=== PATIENT | female | born 1955 | race American Indian/Alaskan Native ===

== ENCOUNTER 2016-08-08 08:17 | Outpatient (CLI) | payer OTHER ==
--- NOTE | 2016-08-08 14:21 | Mammography Report ---
BILATERAL DIGITAL SCREENING MAMMOGRAM with CAD: 08/08/16 08:17:00 CLINICAL: Routine screening. COMPARISON:08/08/15 FINDINGS: There are bilateral scattered fibroglandular densities. A left asymmetry on the CC view requires additional imaging.No architectural distortion or suspicious calcifications.The right breast is negative. IMPRESSION: Left asymmetry requiring further workup. BI-RADS CATEGORY: 0 -- Additional Imaging Evaluation Required RECOMMENDATION: Recall for left lateralmedial and spot compression CC views and left breast ultrasound if needed. ACR BI-RADS MAMMOGRAPHIC CODES: 0 = Needs additional imaging evaluation; 1 = Negative; 2 = Benign; 3 = Probably benign; 4 = Suspicious; 5 = Malignant; 6 = Known biopsy-proven malignancy COMMENT: 1. Dense breast tissue, i.e., adenosis, fibrocystic changes, etc., may obscure an underlying neoplasm. 2. Approximately 10% of cancers are not detected with mammography. 3. A negative mammography report should not delay biopsy if a clinically suspicious mass is present. COMMENT: Patient follow-up letters are generated via our [email or web address] application.
== END 2016-08-08 08:18 | disposition home or self-care (01) ==
LOC: SPVWC 08:17
PROVIDERS: ATTEND Family Medicine
DX: Z12.31 Encounter for screening mammogram for malignant neoplasm of breast (principal)
CPT/HCPCS: 77067; G0202

== ENCOUNTER 2017-09-02 14:00 | Outpatient (CLI) | payer OTHER ==
--- NOTE | 2017-09-02 15:58 | Mammography Report ---
BONE DEXA:09/02/17 14:00:00 CLINICAL: Postmenopausal. No comparison. TECHNIQUE: Two site bone DEXA performed on an Hologic scanner. FINDINGS: The average BMD of the lumbar spine L1-L4 is 0.959g/cm squared with a T-score of -1.7 and a Z-score of +0.1. The average BMD of the left hip is 0.931g/cm squared with a T-score of -0.6 and a Z-score of +0.3. IMPRESSION: WHO classification: Osteopenia with increased fracture risk based on both spine and left hip measurements. RECOMMENDATION: Clinical correlation and routine screening. DEFINITIONS: BMD = Bone Mineral Density T-score = BMD related to mean peak bone mass of young adult (mean expressed in Standard Deviation) Z-score = Age matched BMD expressed in SD World Health Organization (WHO) Diagnostic Criteria Normal T-score > -1 SD Osteopenia T-score between -1 and -2.4 SD Osteoporosis T-score -2.5 SD or below NOTE: BMD is not the only risk factor for fracture. One should also consider factors such as the patient's age, risk of falling, previous osteoporotic fracture, family history of osteoporotic fractures, current smoker, and low body weight. Z-scores are not calculated if >80 years of age.
--- NOTE | 2017-09-03 14:45 | Mammography Report ---
BILATERAL DIGITAL SCREENING MAMMOGRAM WITH CAD: 09/02/17 14:00:00 CLINICAL: Routine screening.Breast cancer survivor status post right partial mastectomy and radiation therapy in 2009. COMPARISON:08/08/16 FINDINGS: The breasts are mostly fatty with a few bilateral scattered fibroglandular densities. Stable right inner postsurgical scar. No mass, suspicious architectural distortion or suspicious calcifications. IMPRESSION: No mammographic evidence of malignancy. BI-RADS CATEGORY: 2 -- Benign RECOMMENDATION: Routine mammographic screening in one year. COMMENT: Patient follow-up letters are generated via our [email or web address] application.
== END 2017-09-02 14:01 | disposition home or self-care (01) ==
LOC: SPVWC 14:00
PROVIDERS: ATTEND Family Medicine
DX: Z12.31 Encounter for screening mammogram for malignant neoplasm of breast (principal); M85.88 Other specified disorders of bone density and structure, other site; Z78.0 Asymptomatic menopausal state; Z90.11 Acquired absence of right breast and nipple
CPT/HCPCS: 77067; 77080

== ENCOUNTER 2018-10-15 15:03 | Outpatient (CLI) | payer OTHER ==
--- NOTE | 2018-10-16 14:23 | Mammography Report ---
BILATERAL DIGITAL SCREENING MAMMOGRAM with CAD: 10/15/18 15:03:00 CLINICAL: Routine screening. COMPARISON: 09/02/17 FINDINGS: There are bilateral scattered areas of fibroglandular density.No mass, architectural distortion or suspicious calcifications. IMPRESSION: No mammographic evidence of malignancy. BI-RADS CATEGORY: 2 - - Benign RECOMMENDATION: Routine mammographic screening in one year. COMMENT: Patient follow-up letters are generated by our [employer] application.
== END 2018-10-15 15:04 | disposition home or self-care (01) ==
LOC: SPVWC 15:03
PROVIDERS: ATTEND Family Medicine
DX: Z12.31 Encounter for screening mammogram for malignant neoplasm of breast (principal)
CPT/HCPCS: 77067

== ENCOUNTER 2019-12-03 09:16 | Outpatient (CLI) | payer MEDICARE ==
--- NOTE | 2019-12-03 10:41 | Mammography Report ---
DIGITAL SCREENING MAMMOGRAM WITH CAD, 12/03/2019 INDICATION: Routine screening mammography. SCREENING MAMMOGRAM TECHNIQUE: Digital bilateral 2D mammography was obtained in the craniocaudal and mediolateral obliq ue projections. This examination was interpreted with the benefit of Computer-Aided Detection analysi s. COMPARISON: 08/08/2016 FINDINGS: Breast Density: There are scattered areas of fibroglandular density. There is no evidence of dominant mass, suspicious calcifications or architectural distortion in eithe r breast. Right surgical and radiation therapy changes are again seen. IMPRESSION: No evidence of malignancy Follow up recommendation: Routine yearly BI-RADS Category 2: Benign. A "normal" or negative report should not discourage follow up or biopsy of a clinically significant f inding. A written summary of these findings will be mailed to the patient. The patient will be entered into a mammography reporting system which will generate a reminder letter for the patient's next appointmen t at the appropriate interval. The [employer] recommends yearly mammograms starting at age 40 and continuing as l patricia as a woman is in good health. Breast MRI is recommended for women with an approximate 20-25% or greater lifetime risk of breast cancer, including women with a strong family history of breast or ova ezekiel cancer or who have been treated for Hodgkin's disease. Signer Name: Toribio Pro MD Signed: 12/03/2019 10:37 AM Workstation Name: [id number]
== END 2019-12-03 09:17 | disposition home or self-care (01) ==
LOC: SPVWC 09:16
PROVIDERS: ATTEND Family Medicine
DX: Z12.31 Encounter for screening mammogram for malignant neoplasm of breast (principal); N64.89 Other specified disorders of breast
CPT/HCPCS: 77067

== ENCOUNTER 2021-02-02 14:43 | Outpatient (CLI) | payer MEDICARE ==
--- NOTE | 2021-02-03 07:55 | Mammography Report ---
DEXA BONE DENSITY SCAN INDICATION / CLINICAL INFORMATION: N95.1 MENOPAUSAL AND FEMALE CLIMACTERIC STATE. 66 years Female COMPARISON: 09/02/17. LUMBAR SPINE, L1-L4: - Bone mineral density (BMD) = 0.983 g/cm2. - T-score = -1.5 - Z-score = 0.6 Change (%) since most recent prior (if available): 2.5% increase. RIGHT HIP, : -Not performed. LEFT HIP, NECK : - Bone mineral density (BMD) = 0.697 g/cm2. - T-score = -1.8 - Z-score = -0.5 Change (%) since most recent prior (if available): 2.2% increase. IMPRESSION: WHO Classification: Osteopenia. Fracture Risk: Increased. Note: 10-Year Fracture Risk (FRAX) not reported. This DEXA unit lacks FRAX functionality. BMD Reporting Guidelines (ISCD, 2015) BMD Reporting in Postmenopausal Women and in Men Age 50 and Older - T-scores are preferred. - The WHO densitometric classification is applicable. BMD Reporting in Females Prior to Menopause and in Males Younger Than Age 50 - Z-scores, not T-scores, are preferred. This is particularly important in children. - A Z-score of -2.0 or lower is defined as below the expected range for age, and a Z-score above -2.0 is within the expected range for age. - Osteoporosis cannot be diagnosed in men under age 50 on the basis of BMD alone. - The WHO diagnostic criteria may be applied to women in the menopausal transition. http://www.iscd.org/official-positions/8234-jbqz-mcffwfyt-positions-adult/ Signer Name: Radames Mcnamara MD Signed: 02/02/2021 3:51 PM Workstation Name: [id number]
--- NOTE | 2021-02-06 09:17 | Mammography Report ---
DIGITAL SCREENING MAMMOGRAM WITH CAD, 02/06/2021 CLINICAL INFORMATION / INDICATION: Routine screening mammography. SCREENING MAMMO Z12.31 TECHNIQUE: Digital bilateral 2D mammography was obtained in the craniocaudal and mediolateral obliqu e projections. This examination was interpreted with the benefit of Computer-Aided Detection analysis . COMPARISON: 12/03/2019 FINDINGS: Breast Density: There are scattered areas of fibroglandular density. No dominant mass, suspicious calcifications, or architectural distortion in either breast. Old scar again noted in the right breast. IMPRESSION: No mammographic evidence of malignancy. Follow up recommendation: Routine yearly BI-RADS Category 2: Benign. A "normal" or negative report should not discourage follow up or biopsy of a clinically significant f inding. A written summary of these findings will be mailed to the patient. The patient will be entered into a mammography reporting system which will generate a reminder letter for the patient's next appointmen t at the appropriate interval. The [employer] recommends yearly mammograms starting at age 40 and continuing as l patricia as a woman is in good health. Breast MRI is recommended for women with an approximate 20-25% or greater lifetime risk of breast cancer, including women with a strong family history of breast or ova ezekiel cancer or who have been treated for Hodgkin's disease. Signer Name: Junaid Tolbert MD Signed: 02/06/2021 9:13 AM Workstation Name: [email or web address]
== END 2021-02-02 14:44 | disposition home or self-care (01) ==
LOC: SPVWC 14:43
PROVIDERS: ATTEND Family Medicine
DX: Z12.31 Encounter for screening mammogram for malignant neoplasm of breast (principal); Z13.820 Encounter for screening for osteoporosis; N95.1 Menopausal and female climacteric states; M85.80 Other specified disorders of bone density and structure, unspecified site
CPT/HCPCS: 77067; 77080

== ENCOUNTER 2022-03-13 08:36 | Outpatient (CLI) | payer MEDICARE ==
--- NOTE | 2022-03-13 15:48 | Mammography Report ---
DIGITAL SCREENING MAMMOGRAM WITH CAD, 03/13/2022 CLINICAL INFORMATION / INDICATION: Routine screening mammography. SCREENING MAMMO Z12.31 TECHNIQUE: Digital bilateral 2D mammography was obtained in the craniocaudal and mediolateral obliqu e projections. This examination was interpreted with the benefit of Computer-Aided Detection analysis . COMPARISON: 02/02/2021, 12/03/2019. FINDINGS: Breast Density: The breasts are almost entirely fatty. No dominant mass, suspicious calcifications, or architectural distortion in either breast. Postsurgical change right breast is stable. IMPRESSION: No mammographic evidence of malignancy. Follow up recommendation: Routine yearly screening mammogram. - The ACR recommends yearly screening MRI in patients with a personal history of breast cancer who [place] dense fibroglandular tissue as well in patients who were diagnosed with breast cancer under the ag e of 50. BI-RADS Category 2: BENIGN. A "normal" or negative report should not discourage follow up or biopsy of a clinically significant f inding. A written summary of these findings will be mailed to the patient. The patient will be entered into a mammography reporting system which will generate a reminder letter for the patient's next appointmen t at the appropriate interval. The [employer] recommends yearly mammograms starting at age 40 and continuing as l patricia as a woman is in good health. Breast MRI is recommended for women with an approximate 20-25% or greater lifetime risk of breast cancer, including women with a strong family history of breast or ova ezekiel cancer or who have been treated for Hodgkin's disease. Signer Name: Erick Shabazz MD Signed: 03/13/2022 3:43 PM Workstation Name: [id number]
== END 2022-03-13 08:37 | disposition home or self-care (01) ==
LOC: SPVWC 08:36
PROVIDERS: ATTEND Family Medicine
DX: Z12.31 Encounter for screening mammogram for malignant neoplasm of breast (principal)
CPT/HCPCS: 77067